=== PATIENT | female | born 1945 | race Caucasian/White ===

== ENCOUNTER 2018-07-15 13:42 | Outpatient (CLI) | payer MEDICARE, OTHER, SELFPAY ==
[2018-07-15 14:12] LABS: Abs Immature Grans 0.01 k/cumm (0.0-0.09); Absolute Basophil Count 0.01 k/cumm (0.0-0.2); Absolute Eosinophil Count 0.02 k/cumm (0.0-0.7); Absolute Lymphocyte Count 1.94 k/cumm (1.2-3.4); Absolute Monocyte Count 0.62 k/cumm (0.11-0.7); Absolute Neutrophil Count 4.16 k/cumm (1.2-6.7); Basophils % 0.1; Eosinophils % 0.3; HCT 38.1 % (36.0-46.0); HGB 12.7 g/dL (12.0-15.5); Immature Grans % 0.1; Lymphocytes % 28.7; Mean Corp. HGB Concentration 33.3 g/dL (32.0-36.0); Mean Corpuscular Hemoglobin 33.4 pg (27.0-33.0); Mean Corpuscular Volume 100.3 fL (80-95); Mean Platelet Volume 9.6 fL (8.0-11.0); Monocytes % 9.2; Neutrophils % 61.6; Platelet Count 166 x1000/uL (130-400); RBC Distribution Width 13.5 % (11.7-14.6); White Blood Cell Count 6.76 k/cumm (4.4-10.8)
[2018-07-15 14:32] LABS: ALT 30 U/L (12-78); AST 27 U/L (15-37); Albumin 3.8 g/dL (3.4-5.0); Alkaline Phosphatase 121 U/L (46-116); Anion Gap 10.4 mmol/L (3-11); BUN 14 mg/dL (7-18); Bilirubin, Total 0.4 mg/dL (0.2-1.0); CO2 26.6 mmol/L (21.0-32.0); CREATININE 0.98 mg/dL (0.55-1.02); Calcium 8.4 mg/dL (8.5-10.1); Chloride 99 mmol/L (98-107); Estimated GFR 55.95 (mL/min/1.73m2); Glucose 95 mg/dL (70-100); Potassium 3.7 mmol/L (3.5-5.1); Sodium 136 mmol/L (136-145); Total Protein 7.8 g/dL (6.4-8.2)
--- NOTE | 2018-07-15 14:36 | DI.RAD_ITS ---
SYMPTOM/DIAGNOSIS: LT HIP PAIN, BONE LESION M25.552 M89.9 H/O ADENOCARCINOMA LEFT FEMUR: In the femoral head there is subchondral sclerosis. There is a subchondral cyst present. There are osteophytes arising from both the acetabulum and the femoral head. Mild joint space narrowing is present. No other suspicious lytic or sclerotic lesions are seen in the bones. Soft tissues are unremarkable. IMPRESSION: Marked osteoarthritis of the left hip.
--- NOTE | 2018-07-15 14:36 | DI.RAD_ITS ---
SYMPTOM/DIAGNOSIS: STAGE IV LUNG CA, LEFT C34.92. ON TARGETED THERAPY WITH TAGRISSO. NEW PRODUCTIVE COUGH AND FEVER CHEST X-RAY: PA and lateral. No priors for comparison Heart size and pulmonary vasculature are within normal limits. There is an opacity seen to the left of the heart that appears to lie in the left lower lobe. The area measures approximately 4 cm. The lungs are otherwise clear. No effusions or pneumothoraces identified. Degenerative changes are seen in the spine. IMPRESSION: 4 cm soft tissue mass which appears to like in the left lower lobe. Pulmonary neoplasm should be considered. Infectious or inflammatory process cannot be excluded. There are no priors for comparison.
== END 2018-07-15 14:02 ==
PROVIDERS: PCP Nurse Practitioner; Visit Provider Internal Medicine Hospice and Palliative Medicine
DX: C34.92 Malignant neoplasm of unspecified part of left bronchus or lung (principal); M16.12 Unilateral primary osteoarthritis, left hip; M25.552 Pain in left hip
CPT/HCPCS: 36415; 73552; 80053; 71046; 85025